=== PATIENT | male | born 1955 | race Hispanic/Latino ===

== ENCOUNTER 2022-03-15 16:21 | Inpatient (IN) | payer MEDICARE ==
[2022-03-15 17:17] LABS: #Lymphocytes 0.4 thou/uL (1.20-3.40); #Monocytes 0.4 thou/uL (0.11-0.59); #Neutrophils 4.3 thou/uL (1.40-6.50); %Eosinophils 0.1 % (0.0-10.0); %Lymphocytes 8.3 % (21.0-51.0); %Monocytes 7.1 % (0.0-10.0); %Neutrophils 84.5 % (42.0-75.0); Hemoglobin 11.9 g/dL (14.0-18.0); Mean Corpuscular HGB CONC 32.9 g/dL (32.0-36.0); Mean Corpuscular Hemoglobin 27.1 pg (27.0-31.0); Mean Corpuscular Volume 82.5 fl (78.0-98.0); Mean Platelet Volume 9.3 fL (7.4-10.4); Platelet Count 181 10x3/uL (130-400); RBC Distribution Width 13.2 % (11.5-14.5); Red Blood Cell (RBC) Count 4.38 mill/uL (4.70-6.10); White Blood Cell (WBC) Count 5.1 10x3/uL (4.8-10.8)
[2022-03-15 17:42] LABS: ALT (SGPT) 19 U/L (8-55); AST (SGOT) 25 U/L (5-34); Albumin 3.4 g/dL (3.4-4.8); Alkaline Phosphatase 58 U/L (40-110); Anion Gap 14 mmol/L (10-20); BUN (Urea Nitrogen) 23 mg/dL (8.4-25.7); Bilirubin, Total 0.4 mg/dL (0.2-1.2); Calc. Creatinine Clearance 0 mL/min (70-130); Carbon Dioxide 22 mmol/L (23-31); Chloride 100 mmol/L (98-107); Estimated GFR 58; Globulin 2.6 g/dL (2.4-3.5); Glucose 292 mg/dL (80-115); Potassium 4.6 mmol/L (3.5-5.1); Sodium 131 mmol/L (136-145)
[2022-03-15 20:22] LABS: Bilirubin Negative (Negative); Blood, Urine Negative (Negative); Clarity Clear (Clear); Glucose, Urine (Dipstick) 30 mg/dL (Negative); Ketone, Urine Trace mg/dL (Negative); Leukocyte Negative Leu/uL (Negative); Mucous/LPF Rare LPF (<2+); Nitrite Negative (Negative); Protein, Urine (Dipstick) 100 mg/dL (Neg-Trace); RBC/HPF 0-3 HPF (0-3); Renal Epithelial 0-3 HPF (None Seen); Specific Gravity, Urine 1.028 (1.002-1.036); Squamous Epithelial 0-3 HPF (0-3); Urobilinogen Normal mg/dL (Less than 2); WBC/HPF 0-3 HPF (0-3); pH, Urine 5.5 (5.0-9.0)
[2022-03-15] MEDS ORDERED: cefTRIAXone\\ROCEPHIN 1 GM VIAL ONE (20:30)
[2022-03-15] MEDS ORDERED: Acetaminophen 500 MG TAB ONE ×2 (20:30→20:40)
[2022-03-15 20:32] LABS: Bacteria/HPF 1+ HPF (None Seen)
[2022-03-15 20:34] LABS: Calcium Oxalate Crystals Rare HPF (None Seen)
[2022-03-15 20:56] LABS: SARS-CoV-2 NAA Rapid Test DETECTED (NotDetected)
[2022-03-15] MEDS ORDERED: Azithromycin 500 MG VIAL ONE (22:08)
[2022-03-15] MEDS ORDERED: Ondansetron ODT 4 MG TAB PO PRN (22:26)
[2022-03-15] MEDS ORDERED: Acetaminophen 325 MG TAB PO PRN ×2 (22:26)
[2022-03-15] MEDS ORDERED: Senokot S 8.6-50 MG TAB PO PRN (22:26)
[2022-03-15] MEDS ORDERED: Acetaminophen 650 MG Suppository PR PRN (22:26)
[2022-03-15] MEDS ORDERED: Bisacodyl 5 MG TAB PO PRN (22:26)
[2022-03-15] MEDS ORDERED: Albuterol 200 PUFF (6.7GM INHALER) INH PRN (22:26)
[2022-03-15] MEDS ORDERED: Calcium Carbonate 500 MG ChewTAB PO PRN (22:26)
[2022-03-15] MEDS ORDERED: Lactated Ringer's 1,000 ML IV SCH (22:30)
[2022-03-15] MEDS ORDERED: Dextrose 5% in Water 1,000 ML IV PRN (22:30)
[2022-03-15] MEDS ORDERED: Dextrose 50% Abboject 50 ML SYRINGE SLOW IVP PRN (22:30)
[2022-03-16 06:54] LABS: Anion Gap 11 mmol/L (10-20); BUN (Urea Nitrogen) 18 mg/dL (8.4-25.7); Calc. Creatinine Clearance 0 mL/min (70-130); Calcium 8.2 mg/dL (7.8-10.44); Carbon Dioxide 22 mmol/L (23-31); Chloride 109 mmol/L (98-107); Estimated GFR 97; Glucose 81 mg/dL (80-115); Potassium 3.7 mmol/L (3.5-5.1); Sodium 138 mmol/L (136-145)
[2022-03-16] MEDS ORDERED: Heparin 10,000 UNITS/ 10 ML VIAL ONE (07:54)
[2022-03-16] MEDS ORDERED: Dexamethasone 4 MG TAB ONE (07:54)
[2022-03-16] MEDS ORDERED: Famotidine 20 MG TAB ONE (07:54)
[2022-03-16] MEDS: Dexamethasone 4 MG TAB PO SCH (08:36)
[2022-03-16] MEDS: Ascorbic Acid 500 mg Chewable Tablet PO SCH (08:37)
[2022-03-16] MEDS: Cholecalciferol (Vitamin D3) 400 UNITS TAB PO SCH (08:37)
[2022-03-16] MEDS: Famotidine 20 MG TAB PO SCH ×2 (08:37→19:57)
[2022-03-16] MEDS: Zinc Sulfate 220 MG CAP PO SCH (08:38)
[2022-03-16] MEDS: Heparin 5,000 UNITS/ML VIAL SC SCH ×3 (08:46→19:57)
[2022-03-16] MEDS ORDERED: Amlodipine 10 MG TAB PO SCH (12:45)
[2022-03-16 13:41] VITALS: BMI 30.9
[2022-03-16] MEDS: HumaLOG 300 UNITS/3 ML VIAL SC PRN ×2 (16:44→21:23)
[2022-03-16] MEDS: Mycophenolate 250 MG CAP PO SCH (20:55)
[2022-03-16] MEDS: Tacrolimus 1 MG CAP PO SCH (20:56)
[2022-03-16] MEDS: Brimonidine Tartrate 0.2% Ophth Soln 5 ml Bottle EA EYE SCH (21:21)
[2022-03-16] MEDS: Timolol 0.5% Ophth Soln 5 ml Bottle EA EYE SCH (21:22)
[2022-03-17] MEDS: Benzonatate 100 MG CAP PO PRN ×2 (05:42→21:37)
[2022-03-17] MEDS: HumaLOG 300 UNITS/3 ML VIAL SC PRN ×4 (05:42→21:21)
[2022-03-17] MEDS: Ascorbic Acid 500 mg Chewable Tablet PO SCH (09:18)
[2022-03-17] MEDS: Mycophenolate 250 MG CAP PO SCH ×2 (09:18→21:22)
[2022-03-17] MEDS: Dexamethasone 4 MG TAB PO SCH (09:18)
[2022-03-17] MEDS: Cholecalciferol (Vitamin D3) 400 UNITS TAB PO SCH (09:19)
[2022-03-17] MEDS: Famotidine 20 MG TAB PO SCH ×2 (09:19→21:22)
[2022-03-17] MEDS: Heparin 5,000 UNITS/ML VIAL SC SCH ×3 (09:19→21:19)
[2022-03-17] MEDS: Tacrolimus 1 MG CAP PO SCH ×2 (09:19→21:22)
[2022-03-17] MEDS: Timolol 0.5% Ophth Soln 5 ml Bottle EA EYE SCH ×2 (09:19→21:19)
[2022-03-17] MEDS: Amlodipine 10 MG TAB PO SCH (09:19)
[2022-03-17] MEDS: Brimonidine Tartrate 0.2% Ophth Soln 5 ml Bottle EA EYE SCH ×2 (09:19→21:19)
[2022-03-17] MEDS: Zinc Sulfate 220 MG CAP PO SCH (09:19)
[2022-03-17] MEDS: Lisinopril 5 MG TAB PO SCH (09:37)
[2022-03-17] MEDS: Insulin Glargine 30 UNITS/0.3 ML VIAL SC SCH ×2 (09:38→21:19)
[2022-03-17] MEDS: Atorvastatin Calcium 10 MG TAB PO SCH (21:22)
[2022-03-18] MEDS: Benzonatate 100 MG CAP PO PRN ×2 (03:40→20:36)
[2022-03-18] MEDS: HumaLOG 300 UNITS/3 ML VIAL SC PRN ×3 (06:16→16:53)
[2022-03-18 07:03] LABS: #Lymphocytes 0.3 thou/uL (1.20-3.40); #Monocytes 0.3 thou/uL (0.11-0.59); #Neutrophils 5.8 thou/uL (1.40-6.50); %Basophils 0.1 % (0.0-1.0); %Eosinophils 0.1 % (0.0-10.0); %Lymphocytes 4.9 % (21.0-51.0); %Monocytes 4.9 % (0.0-10.0); Hemoglobin 11.4 g/dL (14.0-18.0); Mean Corpuscular HGB CONC 31.9 g/dL (32.0-36.0); Mean Corpuscular Hemoglobin 26.3 pg (27.0-31.0); Mean Corpuscular Volume 82.3 fl (78.0-98.0); Mean Platelet Volume 8.2 fL (7.4-10.4); Platelet Count 254 10x3/uL (130-400); RBC Distribution Width 13.1 % (11.5-14.5); Red Blood Cell (RBC) Count 4.34 mill/uL (4.70-6.10); White Blood Cell (WBC) Count 6.4 10x3/uL (4.8-10.8)
[2022-03-18 07:25] LABS: Anion Gap 13 mmol/L (10-20); BUN (Urea Nitrogen) 27 mg/dL (8.4-25.7); Calc. Creatinine Clearance 82 mL/min (70-130); Calcium 8.5 mg/dL (7.8-10.44); Carbon Dioxide 22 mmol/L (23-31); Chloride 107 mmol/L (98-107); Estimated GFR 87; Glucose 196 mg/dL (80-115); Potassium 3.6 mmol/L (3.5-5.1); Sodium 138 mmol/L (136-145)
[2022-03-18] MEDS: Amlodipine 10 MG TAB PO SCH (09:30)
[2022-03-18] MEDS: Ascorbic Acid 500 mg Chewable Tablet PO SCH (09:30)
[2022-03-18] MEDS: Dexamethasone 4 MG TAB PO SCH (09:30)
[2022-03-18] MEDS: Timolol 0.5% Ophth Soln 5 ml Bottle EA EYE SCH ×2 (09:31→20:23)
[2022-03-18] MEDS: Heparin 5,000 UNITS/ML VIAL SC SCH ×3 (09:31→20:23)
[2022-03-18] MEDS: Famotidine 20 MG TAB PO SCH ×2 (09:31→20:22)
[2022-03-18] MEDS: Insulin Glargine 30 UNITS/0.3 ML VIAL SC SCH ×2 (09:31→20:22)
[2022-03-18] MEDS: Cholecalciferol (Vitamin D3) 400 UNITS TAB PO SCH (09:31)
[2022-03-18] MEDS: Brimonidine Tartrate 0.2% Ophth Soln 5 ml Bottle EA EYE SCH ×2 (09:31→20:23)
[2022-03-18] MEDS: Mycophenolate 250 MG CAP PO SCH ×2 (09:32→20:21)
[2022-03-18] MEDS: Tacrolimus 1 MG CAP PO SCH ×2 (09:32→20:22)
[2022-03-18] MEDS: Lisinopril 5 MG TAB PO SCH (09:33)
[2022-03-18] MEDS: Zinc Sulfate 220 MG CAP PO SCH (09:33)
[2022-03-18] MEDS: Atorvastatin Calcium 10 MG TAB PO SCH (20:22)
[2022-03-19] MEDS: HumaLOG 300 UNITS/3 ML VIAL SC PRN ×2 (05:49→14:04)
[2022-03-19 07:02] LABS: #Lymphocytes 0.3 thou/uL (1.20-3.40); #Monocytes 0.4 thou/uL (0.11-0.59); #Neutrophils 9.2 thou/uL (1.40-6.50); %Basophils 0.1 % (0.0-1.0); %Eosinophils 0.1 % (0.0-10.0); %Neutrophils 92.9 % (42.0-75.0); Hemoglobin 11.6 g/dL (14.0-18.0); Mean Corpuscular HGB CONC 32.2 g/dL (32.0-36.0); Mean Corpuscular Hemoglobin 26.4 pg (27.0-31.0); Mean Corpuscular Volume 82.2 fl (78.0-98.0); Mean Platelet Volume 8.7 fL (7.4-10.4); Platelet Count 271 10x3/uL (130-400); White Blood Cell (WBC) Count 9.9 10x3/uL (4.8-10.8)
[2022-03-19 08:00] VITALS: BP 102/58; TEMP 97.8
[2022-03-19] MEDS: Mycophenolate 250 MG CAP PO SCH (09:01)
[2022-03-19] MEDS: Timolol 0.5% Ophth Soln 5 ml Bottle EA EYE SCH (09:01)
[2022-03-19] MEDS: Ascorbic Acid 500 mg Chewable Tablet PO SCH (09:02)
[2022-03-19] MEDS: Heparin 5,000 UNITS/ML VIAL SC SCH (09:02)
[2022-03-19] MEDS: Lisinopril 5 MG TAB PO SCH (09:02)
[2022-03-19] MEDS: Brimonidine Tartrate 0.2% Ophth Soln 5 ml Bottle EA EYE SCH (09:02)
[2022-03-19] MEDS: Insulin Glargine 30 UNITS/0.3 ML VIAL SC SCH (09:03)
[2022-03-19] MEDS: Zinc Sulfate 220 MG CAP PO SCH (09:03)
[2022-03-19] MEDS: Cholecalciferol (Vitamin D3) 400 UNITS TAB PO SCH (09:03)
[2022-03-19] MEDS: Dexamethasone 4 MG TAB PO SCH (09:03)
[2022-03-19] MEDS: Famotidine 20 MG TAB PO SCH (09:03)
[2022-03-19] MEDS: Amlodipine 10 MG TAB PO SCH (09:03)
[2022-03-19] MEDS: Tacrolimus 1 MG CAP PO SCH (09:03)
== END 2022-03-19 15:45 | disposition home or self-care (01) | DRG 177 ==
LOC: ERS 16:21 → ERHOLD 21:58 → T4-A 03-16 13:02
PROVIDERS: ADMIT Student in an Organized Health Care Education/Training Program; ATTEND Internal Medicine
PROC: 8E0ZXY6 Isolation (ICD-10-PCS; 2022-03-15)
PROC: 3E0DX3Z Introduction of Anti-inflammatory into Mouth and Pharynx, External Approach (ICD-10-PCS; principal; 2022-03-16)
DX: U07.1 COVID-19 (principal); J12.82 Pneumonia due to coronavirus disease 2019; J96.01 Acute respiratory failure with hypoxia; N17.9 Acute kidney failure, unspecified; D84.9 Immunodeficiency, unspecified; E87.1 Hypo-osmolality and hyponatremia; T86.19 Other complication of kidney transplant; E11.65 Type 2 diabetes mellitus with hyperglycemia; I10 Essential (primary) hypertension; E78.5 Hyperlipidemia, unspecified; Y83.8 Other surgical procedures as the cause of abnormal reaction of the patient, or of later complication, without mention of misadventure at the time of the procedure; Z88.1 Allergy status to other antibiotic agents
CPT/HCPCS: 36415; 36416; 71045; 80048; 80053; 80197; 81003; 81015; 83605; 83880; 84145; 84484; 85025; 87040; 93005; 96361; 96365; 96367; J0456; J0696; J1644; J1815; J1956; J7120; J7507; J7517; J8540

== ENCOUNTER 2023-03-25 13:51 | Outpatient (CLI) | payer MEDICARE | END 2023-03-25 13:52 | disposition home or self-care (01) | LOC: ULT 13:51 | PROVIDERS: ATTEND Internal Medicine Cardiovascular Disease | DX: M79.604 Pain in right leg (principal); R60.0 Localized edema | CPT/HCPCS: 93970 ==